=== PATIENT | male | born 1970 | race Caucasian/White ===

== ENCOUNTER 2018-12-04 19:11 | Emergency (ER) | payer SELFPAY ==
[~2018-12-04] VITALS: Ht 182.9 cm; Wt 100.0 kg
[2018-12-04] MEDS ORDERED: SULFAMETHOX/TRIMETH DS 800-160 MG/TABLET PO ONE (20:15)
[2018-12-04] MEDS ORDERED: FLUCONAZOLE 150 MG TABLET PO ONE (20:15)
[2018-12-04] MEDS ORDERED: CEPHALEXIN MONOHYDRATE 500 MG CAPSULE PO ONE (20:15)
[2018-12-04] MEDS ORDERED: CLOTRIMAZOLE 1% 15 GM CREAM TP ONE (20:15)
[2018-12-04 21:29] VITALS: BP 134/67
== END 2018-12-04 21:31 | disposition home or self-care (01) ==
LOC: EMS 19:12
DX: B35.6 Tinea cruris (principal); N49.2 Inflammatory disorders of scrotum
CPT/HCPCS: 76870

== ENCOUNTER 2019-01-27 16:40 | Emergency (ER) | payer SELFPAY ==
[~2019-01-27] VITALS: Ht 182.9 cm; Wt 100.0 kg
[2019-01-27] MEDS ORDERED: POVIDONE-IODINE 10% 15 ML SOLUTION UD TP ONE (18:15)
[2019-01-27] MEDS ORDERED: LIDOCAINE 1% 10 ML VIAL INJ ONE (18:15)
[2019-01-27] MEDS ORDERED: IBUPROFEN 800 MG TABLET PO ONE (18:15)
[2019-01-27] MEDS ORDERED: DOXYCYCLINE HYCLATE 100 MG CAPSULE PO ONE (18:15)
[2019-01-27 18:29] LABS: BASOPHILS % (AUTO) 0.3 % (0.0-2.0); EOSINOPHILS % (AUTO) 1.9 % (1.0-6.0); HEMATOCRIT 42.9 % (41-53); HEMOGLOBIN 14.4 g/dL (13.5-17.5); LYMPHOCYTES # (AUTO) 1.7 K/uL (1.0-4.8); MEAN CORPUSCULAR HEMOGLOBIN 30.2 pg (26.0-34.0); MEAN CORPUSCULAR HGB CONC 33.6 G/dL (31.0-37.0); MEAN CORPUSCULAR VOLUME 90 fL (80-100); MONOCYTES # (AUTO) 0.9 K/uL (0.1-1.0); MONOCYTES % (AUTO) 10.1 % (2.0-9.0); NEUTROPHILS % (AUTO) 68.7 % (40.0-70.0); PLATELET COUNT (AUTO) 194 K/uL (150-450); RED BLOOD CELL COUNT(AUTO) 4.77 MIL/uL (4.50-5.90); RED CELL DISTRIBUTION WIDTH 12.8 % (11.5-14.5)
[2019-01-27 18:44] LABS: ANION GAP 8 mmol/L (8-16); CALCIUM, TOTAL 8.5 mg/dL (8.8-10.5); CARBON DIOXIDE 27 mmol/L (22-29); CHLORIDE 105 mmol/L (98-107); CREATININE 1.02 mg/dL (0.60-1.30); GLOMERULAR FILTR. RATE CALC > 60 mL/min (>60); GLUCOSE,RANDOM 108 mg/dL (70-110); POTASSIUM 3.7 mmol/L (3.5-5.1); SODIUM SERUM 140 mmol/L (136-145); UREA NITROGEN, BLOOD 22 mg/dL (7-18)
[2019-01-27 18:49] LABS: ALANINE AMINOTRANSFERASE 16 U/L (12-78); ALBUMIN 3.7 g/dL (3.4-5.0); ALKALINE PHOSPHATASE 56 U/L (46-116); ASPARTATE AMINOTRANSFERASE 11 U/L (15-37); BILIRUBIN,TOTAL 0.4 mg/dL (0.1-1.0); TOTAL PROTEIN, SERUM 6.9 g/dL (6.4-8.2)
[2019-01-27 19:27] VITALS: BP 124/78
[2019-01-27] MEDS ORDERED: ACETAMINOPHEN/CODEINE 300-30 MG TABLET PO ONE (19:45)
== END 2019-01-27 20:28 | disposition home or self-care (01) ==
LOC: EMS 16:41
DX: L02.416 Cutaneous abscess of left lower limb (principal); L03.116 Cellulitis of left lower limb
CPT/HCPCS: 10060; 36415; 80053; 85025; 99284; J3490